=== PATIENT | male | born 1960 | race Two or more races ===

== ENCOUNTER 2017-09-04 00:36 | Inpatient (IN) | payer OTHER ==
[~2017-09-04] VITALS: Ht 172.7 cm; Wt 87.5 kg
[2017-09-04 02:18] LABS: Basophils # (auto) 0 uL; Basophils % (auto) 0.1 % (0.0-2.0); Eosinophils # (auto) 0 uL; Hematocrit 36.4 % (41.0-53.0); Hemoglobin 12.7 g/dL (13.5-17.5); Lymphocytes # (auto) 1.2 uL; Mean Corpuscular Hgb Conc. 34.9 g/dL (32.0-36.0); Mean Corpuscular Volume 88.7 fL (80.0-100.0); Monocytes # (auto) 0.9 uL; Monocytes % (auto) 4.6 % (0.0-12.0); Neutrophils # (auto) 17.9 uL; Neutrophils % (auto) 89.3 % (37.0-80.0); Platelet Count (auto) 226 10^3/uL (140-450); Red Cell Distribution Width 13.4 % (11.8-14.3)
[2017-09-04 02:31] LABS: INR 0.99 (0.9-1.15); Partial Thromboplastin Time 30.5 sec (22.64-33.71); Prothrombin Time 10.8 sec (9.37-12.3)
[2017-09-04 02:48] LABS: Urine Bacteria FEW /hpf (None Seen); Urine Blood 1+ /uL (Negative); Urine Specific Gravity 1.006 (1.001-1.035); Urine WBC 1 /hpf (0 - 3)
[2017-09-04 02:56] LABS: BUN/Creatinine Ratio 11.2; Potassium 4.1 mmol/L (3.5-5.1)
[2017-09-04 02:57] LABS: Bilirubin, Total 1.9 mg/dL (0.2-1.0); Calcium 7.6 mg/dL (8.5-10.1)
[2017-09-04 02:58] LABS: Albumin 3.3 g/dL (3.4-5.0); Total Protein 7.9 g/dL (6.4-8.2)
[2017-09-04] MEDS ORDERED: SODIUM CHLORIDE 0.9% 1,000 ML IV ONE ×3 (03:30→10:30)
[2017-09-04] MEDS ORDERED: SODIUM CHL 3% 500 ML IV ONE (03:30)
[2017-09-04 04:25] LABS: Albumin 3.1 g/dL (3.4-5.0); BUN/Creatinine Ratio 11.5; Calcium 7.2 mg/dL (8.5-10.1); Potassium 4.3 mmol/L (3.5-5.1)
[2017-09-04 04:27] LABS: Total Protein 7.2 g/dL (6.4-8.2)
[2017-09-04] MEDS ORDERED: InsuLIN REG 1unit/0.01ml Soln (100units/ml) IV ONE ×2 (07:15→10:30)
[2017-09-04] MEDS: SODIUM CHLORIDE 0.9% 1,000 ML IV SCH ×2 (08:31→12:12)
[2017-09-04] MEDS ORDERED: MORPHINE SULFATE 4 MG/ML SYR/VIAL IV PRN ×2 (08:45)
[2017-09-04] MEDS ORDERED: LABETALOL HCL 5 MG/ML ML 20ML VIAL IV PRN (08:45)
[2017-09-04] MEDS ORDERED: NITROGLYCERIN 0.4 MG SL TAB SL PRN (08:45)
[2017-09-04] MEDS ORDERED: LORazepam 0.5 MG TAB PO PRN (08:45)
[2017-09-04] MEDS ORDERED: LACTULOSE 20Gm/30ML SOLN PO PRN (08:45)
[2017-09-04] MEDS ORDERED: PROMETHAZINE HCL 25 MG/ML 1ML IV PRN (08:45)
[2017-09-04] MEDS ORDERED: TEMAZEPAM 15 MG CAP PO PRN (08:45)
[2017-09-04] MEDS ORDERED: HYDROcodone-ACET 5/325MG TAB PO PRN (08:45)
[2017-09-04] MEDS ORDERED: DEXTROSE (50%) 50ML SYRG IV PRN (08:45)
[2017-09-04] MEDS: cefTRIAXone 1GM/10ml IVPUSH 10 ML IV SCH (09:50)
[2017-09-04] MEDS: FAMOTIDINE (10MG/ML) 2ML VL IV SCH ×2 (09:50→20:41)
[2017-09-04] MEDS: ENOXAPARIN SOD 40 MG/0.4 ML SYRINGE SC SCH (09:50)
[2017-09-04 10:13] LABS: Amylase 99 U/L (25-115); Lipase 364 U/L (73-393)
[2017-09-04] MEDS ORDERED: ACCU-CHEK COMFORT CURVE STRIP VI SCH (10:30)
[2017-09-04 10:48] LABS: BUN/Creatinine Ratio 10.9; Calcium 7.4 mg/dL (8.5-10.1); Potassium 4.4 mmol/L (3.5-5.1)
[2017-09-04] MEDS: InsuLIN REG 1unit/0.01ml Soln (100units/ml) SC SCH ×5 (11:30→20:15)
[2017-09-04] MEDS: ACCU-CHEK COMFORT CURVE STRIP VI SCH ×3 (12:08→20:15)
[2017-09-04 16:46] LABS: BUN/Creatinine Ratio 10.6; Calcium 7.5 mg/dL (8.5-10.1); Potassium 4.3 mmol/L (3.5-5.1)
[2017-09-04 23:00] VITALS: BP 136/75
[2017-09-04 23:24] LABS: BUN/Creatinine Ratio 10.1; Calcium 7.7 mg/dL (8.5-10.1); Potassium 3.7 mmol/L (3.5-5.1)
[2017-09-05] VITALS (7 sets, daily range): BP systolic 112–151; BP diastolic 59–83
[2017-09-05] MEDS: ACCU-CHEK COMFORT CURVE STRIP VI SCH ×6 (00:14→20:00)
[2017-09-05] MEDS: InsuLIN REG 1unit/0.01ml Soln (100units/ml) SC SCH ×6 (00:15→20:36)
[2017-09-05] MEDS ORDERED: OMEP20CA74 PO (02:35)
[2017-09-05] MEDS ORDERED: METO25TA62 PO ×2 (02:35)
[2017-09-05] MEDS ORDERED: CHLO25TA34 PO (02:35)
[2017-09-05] MEDS: SODIUM CHLORIDE 0.9% 1,000 ML IV SCH ×3 (04:31→11:51)
[2017-09-05 05:46] LABS: Basophils # (auto) 0 uL; Basophils % (auto) 0.4 % (0.0-2.0); Eosinophils # (auto) 0 uL; Eosinophils % (auto) 0.3 % (0.0-7.0); Hematocrit 31.4 % (41.0-53.0); Lymphocytes # (auto) 1.8 uL; Lymphocytes % (auto) 17.4 % (10.0-50.0); Mean Corpuscular Hemoglobin 31.3 pg (28.0-32.0); Mean Corpuscular Hgb Conc. 35.1 g/dL (32.0-36.0); Mean Corpuscular Volume 89.1 fL (80.0-100.0); Monocytes # (auto) 0.7 uL; Monocytes % (auto) 6.7 % (0.0-12.0); Neutrophils # (auto) 7.8 uL; Neutrophils % (auto) 75.2 % (37.0-80.0); Nucleated Red Blood Cells % 0.1 %; Platelet Count (auto) 233 10^3/uL (140-450); Red Blood Cells 3.53 10^6/uL (4.5-5.90); Red Cell Distribution Width 13.9 % (11.8-14.3); White Blood Cell 10.4 10^3/uL (4.4-10.8)
[2017-09-05 06:16] LABS: Albumin 2.4 g/dL (3.4-5.0); BUN/Creatinine Ratio 11.6; Bilirubin, Total 0.5 mg/dL (0.2-1.0); Calcium 7.9 mg/dL (8.5-10.1); Potassium 3.7 mmol/L (3.5-5.1); Total Protein 6.3 g/dL (6.4-8.2)
[2017-09-05] MEDS: FAMOTIDINE (10MG/ML) 2ML VL IV SCH ×2 (09:49→20:44)
[2017-09-05] MEDS: cefTRIAXone 1GM/10ml IVPUSH 10 ML IV SCH (09:50)
[2017-09-05] MEDS: ENOXAPARIN SOD 40 MG/0.4 ML SYRINGE SC SCH (09:50)
[2017-09-05] MEDS ORDERED: SODIUM BICARBONATE 50ML VIAL 150 ML in D5W 5% 1,000 ML IV SCH (12:45)
[2017-09-05] MEDS ORDERED: DEXTROSE (50%) 50ML SYRG IV PRN (12:45)
[2017-09-05] MEDS ORDERED: POTASSIUM CHL 20 Meq TABLET PO ONE (14:00)
[2017-09-05 16:09] LABS: BUN/Creatinine Ratio 9.8; Calcium 7.3 mg/dL (8.5-10.1); Potassium 3.9 mmol/L (3.5-5.1)
[2017-09-05] MEDS ORDERED: InsuLIN REG 1unit/0.01ml Soln (100units/ml) SC SCH (17:00)
[2017-09-05] MEDS: glipiZIDE 5 MG TAB PO SCH (18:25)
[2017-09-05] MEDS: SODIUM BICARBONATE 50ML VIAL 75 ML in SOD CHL 0.45% 1,000 ML IV SCH (19:02)
[2017-09-05] MEDS: ACETAMINOPHEN 500 MG TAB PO PRN (21:42)
[2017-09-06] MEDS ORDERED: POTASSIUM CHL 20 Meq TABLET PO ONE (00:30)
[2017-09-06] MEDS: InsuLIN REG 1unit/0.01ml Soln (100units/ml) SC SCH ×6 (00:33→21:06)
[2017-09-06] MEDS: ACCU-CHEK COMFORT CURVE STRIP VI SCH ×6 (04:00→21:03)
[2017-09-06 05:00] VITALS: BP 111/71
[2017-09-06] MEDS: SODIUM BICARBONATE 50ML VIAL 75 ML in SOD CHL 0.45% 1,000 ML IV SCH ×2 (05:11→16:55)
[2017-09-06 05:50] LABS: Alcohol, Urine < 3.0 mg/dL (0-5); Amphetamine Screen, Urine NEGATIVE (NEGATIVE); Barbiturate Scree,Urine NEGATIVE (NEGATIVE); Benzodiazephine Screen, Urine NEGATIVE (NEGATIVE); Cannabinoid Screen, Urine NEGATIVE (NEGATIVE); Cocaine Screen, Urine NEGATIVE (NEGATIVE); Opiate Scree,Urine NEGATIVE (NEGATIVE); Phencyclidine Screen, Urine NEGATIVE (NEGATIVE)
[2017-09-06] MEDS: glipiZIDE 5 MG TAB PO SCH ×2 (06:36→17:55)
[2017-09-06 06:41] LABS: Basophils # (auto) 0 uL; Basophils % (auto) 0.7 % (0.0-2.0); Eosinophils # (auto) 0.1 uL; Eosinophils % (auto) 1.7 % (0.0-7.0); Hematocrit 30.3 % (41.0-53.0); Hemoglobin 10.7 g/dL (13.5-17.5); Lymphocytes # (auto) 2.1 uL; Lymphocytes % (auto) 30.8 % (10.0-50.0); Mean Corpuscular Hemoglobin 31.2 pg (28.0-32.0); Mean Corpuscular Hgb Conc. 35.2 g/dL (32.0-36.0); Mean Corpuscular Volume 88.6 fL (80.0-100.0); Monocytes # (auto) 0.6 uL; Monocytes % (auto) 8.8 % (0.0-12.0); Nucleated Red Blood Cells % 0.1 %; Platelet Count (auto) 219 10^3/uL (140-450); Red Blood Cells 3.41 10^6/uL (4.5-5.90); Red Cell Distribution Width 14.1 % (11.8-14.3)
[2017-09-06 07:06] LABS: BUN/Creatinine Ratio 9.2; Calcium 7.6 mg/dL (8.5-10.1); Magnesium 2.2 mg/dL (1.6-2.6); Potassium 3.7 mmol/L (3.5-5.1)
[2017-09-06 09:00] VITALS: BP 158/89
[2017-09-06 09:42] LABS: Folate (Folic Acid) 19.02 ng/mL (5.38-24)
[2017-09-06] MEDS: ENOXAPARIN SOD 40 MG/0.4 ML SYRINGE SC SCH (09:42)
[2017-09-06] MEDS: FAMOTIDINE (10MG/ML) 2ML VL IV SCH ×2 (09:42→20:59)
[2017-09-06 12:55] VITALS: BP 137/81
[2017-09-06] MEDS ORDERED: chlorproMAZINE HCL 25 MG TAB PO PRN (13:00)
[2017-09-06 16:57] VITALS: BP 136/80
[2017-09-06] MEDS: ACETAMINOPHEN 500 MG TAB PO PRN (20:59)
[2017-09-06 22:30] VITALS: BP 126/70
[2017-09-07] MEDS: ACCU-CHEK COMFORT CURVE STRIP VI SCH ×4 (00:13→11:27)
[2017-09-07] MEDS: InsuLIN REG 1unit/0.01ml Soln (100units/ml) SC SCH ×4 (00:16→11:28)
[2017-09-07] MEDS: SODIUM BICARBONATE 50ML VIAL 75 ML in SOD CHL 0.45% 1,000 ML IV SCH (02:15)
[2017-09-07 05:11] VITALS: BP 114/79
[2017-09-07] MEDS: glipiZIDE 5 MG TAB PO SCH (06:31)
[2017-09-07 06:58] LABS: Basophils # (auto) 0.1 uL; Basophils % (auto) 1.6 % (0.0-2.0); Eosinophils # (auto) 0.2 uL; Eosinophils % (auto) 3.2 % (0.0-7.0); Hematocrit 30.6 % (41.0-53.0); Hemoglobin 10.9 g/dL (13.5-17.5); Lymphocytes # (auto) 2.3 uL; Lymphocytes % (auto) 41.3 % (10.0-50.0); Mean Corpuscular Hemoglobin 31.9 pg (28.0-32.0); Mean Corpuscular Hgb Conc. 35.5 g/dL (32.0-36.0); Mean Corpuscular Volume 89.8 fL (80.0-100.0); Monocytes # (auto) 0.5 uL; Neutrophils # (auto) 2.5 uL; Neutrophils % (auto) 44.9 % (37.0-80.0); Nucleated Red Blood Cells % 0.1 %; Platelet Count (auto) 235 10^3/uL (140-450); Red Blood Cells 3.41 10^6/uL (4.5-5.90); Red Cell Distribution Width 14.3 % (11.8-14.3); White Blood Cell 5.5 10^3/uL (4.4-10.8)
[2017-09-07 07:16] LABS: Potassium 3.5 mmol/L (3.5-5.1)
[2017-09-07 07:22] LABS: BUN/Creatinine Ratio 9.9; Calcium 8.1 mg/dL (8.5-10.1); Magnesium 2.1 mg/dL (1.6-2.6)
[2017-09-07] MEDS: FAMOTIDINE (10MG/ML) 2ML VL IV SCH (08:37)
[2017-09-07 09:00] VITALS: BP 117/68
[2017-09-07] MEDS: ENOXAPARIN SOD 40 MG/0.4 ML SYRINGE SC SCH (09:51)
[2017-09-07 13:00] VITALS: BP 130/74
== END 2017-09-07 13:30 | disposition home or self-care (01) | DRG 469 ==
LOC: ER 00:36 → EDBD 00:36 → OVERFLOW 00:37 → TELE-WESTW 22:44
PROVIDERS: ADMIT Internal Medicine; ATTEND Internal Medicine
DX: N17.0 Acute kidney failure with tubular necrosis (principal); E11.10 Type 2 diabetes mellitus with ketoacidosis without coma; E44.0 Moderate protein-calorie malnutrition; R65.10 Systemic inflammatory response syndrome (SIRS) of non-infectious origin without acute organ dysfunction; E11.22 Type 2 diabetes mellitus with diabetic chronic kidney disease; E87.1 Hypo-osmolality and hyponatremia; E11.42 Type 2 diabetes mellitus with diabetic polyneuropathy; E87.8 Other disorders of electrolyte and fluid balance, not elsewhere classified; R17 Unspecified jaundice; N18.3 Chronic kidney disease, stage 3 (moderate); E87.6 Hypokalemia; E66.3 Overweight; E66.9 Obesity, unspecified; R29.6 Repeated falls; D72.829 Elevated white blood cell count, unspecified; G89.29 Other chronic pain; F10.20 Alcohol dependence, uncomplicated; M54.9 Dorsalgia, unspecified; R35.0 Frequency of micturition; Z68.29 Body mass index [BMI] 29.0-29.9, adult; Z80.0 Family history of malignant neoplasm of digestive organs; Z83.3 Family history of diabetes mellitus; I69.851 Hemiplegia and hemiparesis following other cerebrovascular disease affecting right dominant side
CPT/HCPCS: 36415; 36600; 70450; 71045; 76775; 80048; 80053; 80061; 80307; 81001; 82010; 82150; 82550; 82607; 82746; 82805; 82962; 83036; 83605; 83690; 83735; 83880; 84443; 84484; 84550; 85025; 85610; 85652; 85730; 87040; 87086; 87493; 93005; 93306; 96361; 96372; 96374; 96375; 96376; J1815; J3490; Q0161